=== PATIENT | male | born 1970 | race Caucasian/White ===

== ENCOUNTER 2025-04-09 11:35 | Observation (INO) ==
[2025-04-09 12:21] LABS: Hematocrit (blood only) 51.5 % (42.0-52.0); Hemoglobin 16.8 g/dl (14.0-18.0); Immature Granulocytes # (auto) 0.09 K/uL (0.01-0.20); Immature Granulocytes % (auto) 0.8 %; Mean Corpuscular Hemoglobin 30.5 pg (25.0-34.0); Mean Corpuscular Volume 93.6 fL (80.0-100.0); Platelet Count 265 K/uL (130-400); RDW Standard Deviation 45.3 fL (36.4-46.3); Red Blood Count 5.50 M/uL (4.70-6.10); White Blood Count 11.43 K/ul (4.8-10.8)
[2025-04-09 12:31] LABS: Alanine Aminotransferase 20.0 U/L (7-52); Albumin Globulin Ratio 1.6 (0.9-2); Alkaline Phosphatase 66.0 U/L (34-104); Anion Gap 8.0 (3-11); Bilirubin,Total 1.2 mg/dl (0.2-1.0); Blood Urea Nitrogen 27.0 mg/dl (6-23); Calcium 9.9 mg/dl (8.6-10.3); Carbon Dioxide 26.0 mmol/L (21-32); Chloride 103.0 mmol/L (98-107); Creatinine Clr Calc Pharmacy 95.2 ml/min; Globulin 2.8 gm/dl (2.5-4.0); Glucose 123.0 mg/dl (70-99(Fasting)); Potassium 4.3 mmol/L (3.5-5.1); Sodium 137.0 mmol/L (136-145); Total Protein 7.4 gm/dl (6.0-8.3)
--- NOTE | 2025-04-09 12:34 | XRay Report ---
SINGLE VIEW CHEST CLINICAL HISTORY: Chest pain FINDINGS: A PA chest radiograph is obtained. No prior studies are available for comparison at the mary e of dictation. A 2-lead cardiac pacemaker is in place and partially obscures the left mid chest. The heart is enlarged. The pulmonary vasculature is noncongested. The lungs and pleural spaces are clear . No pneumothorax is seen. The bony thorax is grossly intact. IMPRESSION: 1. Cardiomegaly and cardiac pacemaker without radiographic evidence of congestive failure. 2. The lungs are clear. ACT 112: Negative or not required by law. Electronically signed by: Denilson Workman M.D. 04/09/2025 12:33 PM
[2025-04-09 12:39] LABS: INR 1.1 (0.9-1.1); Partial Thromboplastin Time 30 Seconds (21-31); Prothrombin Time 11.6 Seconds (9.0-12.0)
--- NOTE | 2025-04-09 13:09 | Emergency Department Note ---
Impression & Plan V-tach, History of atrial flutter, AICD discharge, Non-ischemic cardiomyopathy ED Provider Note NAME: CHRIS WAHL AGE: 54 SEX: M : 1970 ARRIVES VIA: Walk-In INFORMANT: Patient, ED PROVIDER(S): Ariel Cruz MD CHIEF COMPLAINT: Concern for AICD discharge MEDICAL DECISION MAKING: Patient presents with the above. IV was established and blood work was obtained. Patient's AICD was interrogated. Blood work shows white count of 11 with a normal H&H and platelet count. The patient's kidney function unremarkable. Patient has normal magnesium phosphorus and calcium. Troponin negative. I did speak with Dr. Knight with cardiology after obtaining the patient's AICD interrogation report which showed that the patient did receive a shock for VT. He recommended observation monitoring. I did speak to the on- call hospitalist service Gunjan Vidales PA-C and the patient was admitted by Dr. Arango. Discussion w/ other healthcare providers: Tiffanie Vidales PA-C and Dr. Nba Knight cardiology Prior /Outside records reviewed: None Differential diagnosis: Cardiac ischemia, aortic dissection, pulmonary embolism, pneumothorax, pneumonia, pericarditis, myocarditis, GERD, cholecystitis, pancreatitis, musculoskeletal, as well as other pathologies were considered. Diagnostics, as interpreted by me: ECG: Sinus with a first-degree AV block, rate of 98 prolonged NC normal QRS, left axis deviation no ST elevation Q-wave noted in V2. Cardiac monitoring: An order was placed for continuous cardiac monitoring. The monitor shows a rate of 88 with sinus rhythm. Patient was placed on pulse oximetry Medical decision rules: None Imaging studies: I informally interpreted the patient's Chest x-ray does not show evidence of obvious pneumonia with formal report to follow. HPI: Patient presents due to concern for possible discharge of his AICD. Patient reports that he has in place for a known history of A-fib. The patient states that he has had several ablations in the past and does follow with cardiology back at [facility] in [place]. Patient does not believe that he has any prior history of heart failure. She did not have a prior history of cardiac arrest or heart disease. He also reports that he does have a history of atrial flutter. He is compliant with his medications. He does chew tobacco but denies any smoking drugs or alcohol. Patient denies any lightheadedness or dizziness. The patient states that around 11:00 he felt as though he got hit in the chest with a "sledgehammer." Patient denies any other symptoms but wanted to be evaluated for the possibility of the AICD discharging. PAST MEDICAL HISTORY: CHF, A-fib/flutter PAST SURGICAL HISTORY: AICD placement SOCIAL HISTORY: Smokeless tobacco. HOME MEDICATIONS: See Below ALLERGIES: See Below VITALS: See Below PHYSICAL EXAMINATION: GENERAL: NAD, non-toxic. EYE EXAM: Normal conjunctiva. PERRL, no anisocoria and EOM's grossly intact w/o pain. OROPHARYNX: Moist mucus membranes, grossly normal dentition. NECK: Trachea midline, no stridor. Supple, no nuchal rigidity, no adenopathy, non-tender. No signs of meningismus. FROM of the neck with good chin to chest and neck extension. LUNGS: Clear to auscultation. Normal chest wall mechanics. HEART: NSR, no MRG. ABDOMEN: Abdomen soft, non-tender, no masses, no rebound or guarding. BACK: No CVA TTP. SKIN: No rashes and no bruising. UPPER EXTREMITIES: Upper extremities are grossly normal. LOWER EXTREMITIES: Grossly normal, 1+ symmetric lower extremity edema without calf pain or erythema. NEURO EXAM: Awake and alert, follows commands, no obvious facial asymmetry, normal speech, moves all 4 extremities. Past Med/Surg History Problem List Non-ischemic cardiomyopathy History of atrial flutter V-tach AICD discharge Edema of right eyelid (Acute) Medical History Afib Hx of lower gastrointestinal bleeding hx of diverticular bleed T2DM (type 2 diabetes mellitus) HLD (hyperlipidemia) HTN (hypertension) Chronic HFrEF (heart failure with reduced ejection fraction) Cardiomyopathy Surgical History H/O cardiac radiofrequency ablation x 3 Presence of combination internal cardiac defibrillator (ICD) and pacemaker Family History Father Hypertension Coronary heart disease Social History Smoking Status: Former smoker Tobacco Type: Smokeless Tobacco (Dip or Chew) Second Hand Exposure: No; Do You Dip or Chew Tobacco: Yes; Tobacco Cessation Education Requested by Patient: No Hx Alcohol Use: Yes Alcohol type: beer Alcohol Intake Frequency: 2-3 x/Week Hx Substance Use: No Preferred Language: Swedish Communication Ability: Effective Supervisor Covering And Lining Required: No Beliefs That Will Affect Care: None Current Living Situation: Spouse Other Information That Helps Us Care for You: No Feels Safe at Home: Yes Safety Concerns: Feels Safe At This Time Assistive Devices: CPAP Allergies Allergies Allergy/AdvReac Type Severity Reaction Status Date / Time No Known Allergies Allergy Unverified 04/09/25 15:48 Home Meds Home Medications Medication Instructions Recorded Confirmed amiodarone 200 mg tablet 200 mg PO QAM 04/09/25 04/09/25 amlodipine 10 mg tablet 10 mg PO QAM 04/09/25 04/09/25 apixaban 5 mg tablet (Eliquis) 5 mg PO BID 04/09/25 04/09/25 aspirin 81 mg tablet,delayed 81 mg PO QAM 04/09/25 04/09/25 release atorvastatin 40 mg tablet 40 mg PO HS 04/09/25 04/09/25 empagliflozin 10 mg tablet 10 mg PO QAM 04/09/25 04/09/25 (Jardiance) furosemide 40 mg tablet 40 mg PO QAM 04/09/25 04/09/25 multivitamin 1 tab PO QAM 04/09/25 04/09/25 sacubitril 97 mg-valsartan 103 mg 1 tab PO BID 04/09/25 04/09/25 tablet (Entresto) sotalol 120 mg tablet 120 mg PO BID 04/09/25 04/09/25 spironolactone 25 mg tablet 25 mg PO QAM 04/09/25 04/09/25 tirzepatide 10 mg/0.5 mL 10 mg subcut WK 04/09/25 04/09/25 subcutaneous pen injector (Mounjaro) Results & Data (ED) Vital Signs Vital Signs - 24 hr 04/09/25 11:39 04/09/25 12:54 04/09/25 12:57 Temperature 36.2 C L Temperature Source Temporal Artery Scan Pulse Rate 100 H Pulse Rate [Apical] 90 Pulse Rhythm [Apical] Pulse Strength [Apical] Respiratory Rate 18 Respiratory Effort / Characteristics Non-Labored Spontaneous Non-Labored Spontaneous Respiratory Depth Normal Normal Respiratory Pattern Regular Regular Blood Pressure 146/82 H Blood Pressure [Right Arm] 146/95 H Blood Pressure Mean 103 Blood Pressure Mean [Right Arm] 112 Blood Pressure Position [Right Arm] Sitting Pulse Oximetry 96 97 Oxygen Delivery Method Room Air Room Air Room Air Sepsis Recent Fever Within 48 Hours No Sepsis New/Unexplained Change in Mental Status N/A Sepsis Action Taken by Nursing No Action Required 04/09/25 13:06 04/09/25 14:00 04/09/25 16:06 Temperature Temperature Source Pulse Rate 92 H Pulse Rate [Apical] 86 82 Pulse Rhythm [Apical] Regular Pulse Strength [Apical] Normal Respiratory Rate 17 Respiratory Effort / Characteristics Non-Labored Spontaneous Non-Labored Spontaneous Respiratory Depth Normal Normal Respiratory Pattern Regular Regular Blood Pressure Blood Pressure [Right Arm] 135/105 H 119/83 Blood Pressure Mean Blood Pressure Mean [Right Arm] 115 95 Blood Pressure Position [Right Arm] Sitting Pulse Oximetry 96 98 Oxygen Delivery Method Room Air Room Air Sepsis Recent Fever Within 48 Hours Sepsis New/Unexplained Change in Mental Status Sepsis Action Taken by Retirement Medications Current Medication List: was personally reviewed by me Laboratory Data Attestation: I reviewed the patient's lab results. 04/10/25 05:42 04/10/25 05:42 Lab Results 04/09/25 Range/Units 11:48 WBC 11.43 H (4.8-10.8) K/ul RBC 5.50 (4.70-6.10) M/uL Hgb 16.8 (14.0-18.0) g/dl Hct 51.5 (42.0-52.0) % MCV 93.6 (80.0-100.0) fL MCH 30.5 (25.0-34.0) pg MCHC 32.6 (32.0-36.0) g/dL RDW Std Deviation 45.3 (36.4-46.3) fL RDW Coeff of [place] 13.0 (11.5-14.5) % Plt Count 265 (130-400) K/uL MPV 10.3 (9.4-12.4) fL Immature Gran % (Auto) 0.8 % Neut % (Auto) 71.0 % Lymph % (Auto) 19.1 % [place] % (Auto) 7.9 % Eos % (Auto) 0.7 % Baso % (Auto) 0.5 % Neut # (Auto) 8.12 H (1.40-6.50) K/uL Lymph # (Auto) 2.18 (1.20-3.40) K/uL [place] # (Auto) 0.90 H (0.11-0.59) K/uL Eos # (Auto) 0.08 (0.00-0.50) K/uL Baso # (Auto) 0.06 (0.00-0.20) K/uL Immature Gran # (Auto) 0.09 (0.01-0.20) K/uL PT 11.6 (9.0-12.0) Seconds INR 1.1 (0.9-1.1) APTT 30 (21-31) Seconds PTT Ratio 1.1 Sodium 137 (136-145) mmol/L Potassium 4.3 (3.5-5.1) mmol/L Chloride 103 (98-107) mmol/L Carbon Dioxide 26 (21-32) mmol/L Anion Gap 8 (3-11) BUN 27 H (6-23) mg/dl Creatinine 1.30 (0.6-1.4) mg/dl Est Cr Clr Drug Dosing 95.2 ml/min eGFR 64.88 BUN/Creatinine Ratio 20.8 H (10-20) Glucose 123 H (70-99(Fasting)) mg/dl Calcium 9.9 (8.6-10.3) mg/dl Phosphorus 3.9 (2.5-4.9) mg/dl Magnesium 1.9 (1.7-2.4) mg/dl Total Bilirubin 1.2 H (0.2-1.0) mg/dl AST 21 (13-39) U/L ALT 20 (7-52) U/L Alkaline Phosphatase 66 (34-104) U/L Troponin I High Sens 6.0 (0-20) pg/ml Total Protein 7.4 (6.0-8.3) gm/dl Albumin 4.6 (3.4-5.0) gm/dl Globulin 2.8 (2.5-4.0) gm/dl Albumin/Globulin Ratio 1.6 (0.9-2) Administered Medications Amiodarone HCl (Amiodarone 200 Mg Tab) 200 mg PO QAM [facility] Stop: 05/10/25 08:59 Last Admin: 04/10/25 08:34 Dose: 200 mg Documented By: JANE Amlodipine Besylate (Amlodipine Besylate 5 Mg Tab) 10 mg PO QAM [facility] Stop: 05/10/25 08:59 Last Admin: 04/10/25 08:35 Dose: 10 mg Documented By: JANE Apixaban (Apixaban 5 Mg Tablet) 5 mg PO BID [facility] Stop: 05/09/25 20:59 Last Admin: 04/10/25 08:35 Dose: 5 mg Documented By: Admin: 04/09/25 20:22 Dose: 5 mg Documented By: JAMES Aspirin (Aspirin 81 Mg Ectab) 81 mg PO QAM [facility] Stop: 05/10/25 08:59 Last Admin: 04/10/25 08:35 Dose: 81 mg Documented By: JANE Atorvastatin Calcium (Atorvastatin 40 Mg Tab) 40 mg PO HS [facility] Stop: 05/09/25 20:59 Last Admin: 04/09/25 20:53 Dose: 40 mg Documented By: JAMES Empagliflozin (Empagliflozin 10 Mg Tab) 10 mg [facility] Stop: 05/10/25 08:59 Last Admin: 04/10/25 08:35 Dose: 10 mg Documented By: JANE Furosemide (Furosemide 40 Mg Tab) 40 mg PO QAM [facility] Stop: 05/10/25 08:59 Last Admin: 04/10/25 08:35 Dose: 40 mg Documented By: JANE Insulin Aspart (Insulin Aspart Per Unit Charge) 0 units SC ACHS [facility] Stop: 05/09/25 20:59 Last Admin: 04/10/25 08:04 Dose: Not Given Documented By: Admin: 04/09/25 20:23 Dose: Not Given Documented By: JAMES Multivitamins (Multivitamin Tab) 1 tab PO QAM [facility] Stop: 05/10/25 08:59 Last Admin: 04/10/25 08:35 Dose: 1 tab Documented By: JANE Sacubitril/Valsartan (Valsartan/Sacubitril 103/97mg Tab) 1 tab PO BID [facility] Stop: 05/09/25 20:59 Last Admin: 04/10/25 08:35 Dose: 1 tab Documented By: Admin: 04/09/25 20:22 Dose: 1 tab Documented By: JAMES Sotalol HCl (Sotalol Hcl 80 Mg Tab) 120 mg PO BID [facility] Stop: 05/09/25 20:59 Last Admin: 04/10/25 08:34 Dose: 120 mg Documented By: Admin: 04/09/25 20:53 Dose: 120 mg Documented By: JAMES Spironolactone (Spironolactone 25 Mg Tab) 25 mg PO QAM [facility] Stop: 05/10/25 08:59 Last Admin: 04/10/25 08:35 Dose: 25 mg Documented By: JANE Discontinued Medications Magnesium Sulfate/Dextrose (Magnesium Sulfate / D5w) 1 gm in 100 mls @ 50 mls/hr IV ONE ONE Stop: 04/09/25 18:18 Last Infusion: 04/09/25 18:59 Dose: Infused Documented By: [facility] Admin: 04/09/25 17:02 Dose: 50 mls/hr Documented By: JAI Imaging Data Radiologist's Impression: Chest X-Ray 04/09/25 11:43 SINGLE VIEW CHEST CLINICAL HISTORY: Chest pain FINDINGS: A PA chest radiograph is obtained. No prior studies are available for comparison at the time of dictation. A 2-lead cardiac pacemaker is in place and partially obscures the left mid chest. The heart is enlarged. The pulmonary vasculature is noncongested. The lungs and pleural spaces are clear. No pneumothorax is seen. The bony thorax is grossly intact. IMPRESSION: 1. Cardiomegaly and cardiac pacemaker without radiographic evidence of congestive failure. 2. The lungs are clear. ACT 112: Negative or not required by law. Electronically signed by: Denilson Workman M.D. 04/09/2025 12:33 PM Discharge Plan Visit Data Chief Complaint: Cardiac Assessment Stated Complaint: heart ED Provider: Ariel Cruz Discharge Problem: V-tach, History of atrial flutter, AICD discharge, Non-ischemic cardiomyopathy Patient Disposition: Admitted As Inpatient Condition: Good Discharge Instructions Interventions: ED Discharge Assessment Last Done: 04/09/25 19:03
[2025-04-09 13:41] LABS: Magnesium 1.9 mg/dl (1.7-2.4)
--- NOTE | 2025-04-09 16:40 | History & Physical Report ---
Date of Service April 09, 2025 Assessment & Plan (1) AICD discharge: (2) V-tach: (3) Chronic HFrEF (heart failure with reduced ejection fraction): (4) Cardiomyopathy: (5) T2DM (type 2 diabetes mellitus): (6) HTN (hypertension): (7) HLD (hyperlipidemia): (8) Afib: Plan This is a 54-year-old male who has significant past medical history of nonischemic hypertensive cardiomyopathy with severely reduced LVEF of 20 to 25%, chronic HFrEF, hx of afib s/p ablation x 3, hx of atrial futter, history of nonsustained V. tach, presence of dual-chamber pacemaker/AICD, history of type I second-degree AV block with occasional 2-1 AV block, HTN, HLD, T2DM who presents to ED after sustaining a discharge from his AICD. #AICD Discharge #Dilated nonischemic cardiomyopathy #Chronic HFrEF #Hx of atrial fibrillation s/p ablation x 3 #hx of atrial flutter admit to PCU [place] pacer interrogation revealed 45 sec run of vtach with AICD discharge, pt had additional episode of NSVT ED provider discussed with cardiology Dr. Knight who recommends observation on tele continue amiodarone, sotalol, eliquis, lasix, aldactone, entresto, jardiance potassium adequate, will give magnesium 1g to get to 2.0 or above troponin is undetectable obtain echocardiogram Pt follows with cardiology Dr. Jose Valentin of [facility] in [place] and Dr. Ariel Gayle of [facility], [facility] of [place] #HLD: chronic, stable, continue statin #T2DM: unknown a1c on mounjaro and jardiance at outpt, place on novolog SS and diabetic diet, a1c in a.m. #HTN: chronic, stable, continue amlodipine, lasix, entresto, aldactone DVT ppx: Eliquis FULL CODE PCP: Ariel Gayle is high voltage electrician Dispo: admit to PCU Pt was seen and examined in collaboration with Dr. Arango, please see addendum I spent a total of 65 minutes coordinating, documenting and providing care for this patient excluding time spent in the performance of separately billed services or time spent by another provider/QHP. History of Present Illness Chief Complaint: AICD discharge prior to arrival. Primary Care Provider: RICOC GAYLE This is a 54-year-old male who has significant past medical history of nonischemic hypertensive cardiomyopathy with severely reduced LVEF of 20 to 25%, chronic HFrEF, hx of afib s/p ablation x 3, hx of atrial futter, history of nonsustained V. tach, presence of dual-chamber pacemaker/AICD, history of type I second-degree AV block with occasional 2-1 AV block, HTN, HLD, T2DM who presents to ED after sustaining a discharge from his AICD. History is obtained from patient, son at bedside, ED provider. 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 Patient is not from the area and his establish care is in [facility]. He is currently in the area for work. 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 He was off of work today and has been feeling well. He denies any recent illness, fever, chills, sweats, lightheadedness, dizziness, chest pain, shortness of breath, nausea, vomiting, abdominal pain, changes bowel or urinary habits. He has not missed any dosages of his medications. He has been compliant. He states at approximately 11 AM today he had an acute onset of, "being hit in the chest with a sledgehammer or like I got electrocuted." He did not pass out or have any prodromal symptoms. He has never had this happen before. He presented to ED with his son. He states he saw his high voltage electrician 1 month ago and had a pacemaker interrogation. He has known hx of afib and had ablation x 3. 2-3 weeks ago he was to undergo a possible ablation for atrial flutter but ekg showed regular rhythm when he presented for procedure. He states his EP Solar Installation Crew Supervisor is Dr. Ariel Gayle with [facility]. Hx primary high voltage electrician is Dr. Jose Valentin. Both are out of [place], [place]. He reports his EF at diagnosis was 22% initially. He reports recently having an echo but is unsure of the results. In ED pt underwent an [employer] Pac[employer]/AICD interrogation which revealed 2 runs of VTACH ,1 sustained at 45 sec which resulted in aicd discharge. Allergies Allergy/AdvReac Type Severity Reaction Status Date / Time No Known Allergies Allergy Unverified 04/09/25 15:48 Home Medications Medication Instructions Recorded Confirmed Type amiodarone 200 mg tablet 200 mg PO QAM 04/09/25 04/09/25 History amlodipine 10 mg tablet 10 mg PO QAM 04/09/25 04/09/25 History apixaban 5 mg tablet (Eliquis) 5 mg PO BID 04/09/25 04/09/25 History aspirin 81 mg tablet,delayed 81 mg PO QAM 04/09/25 04/09/25 History release atorvastatin 40 mg tablet 40 mg PO HS 04/09/25 04/09/25 History empagliflozin 10 mg tablet 10 mg PO QAM 04/09/25 04/09/25 History (Jardiance) furosemide 40 mg tablet 40 mg PO QAM 04/09/25 04/09/25 History multivitamin 1 tab PO QAM 04/09/25 04/09/25 History sacubitril 97 mg-valsartan 103 mg 1 tab PO BID 04/09/25 04/09/25 History tablet (Entresto) sotalol 120 mg tablet 120 mg PO BID 04/09/25 04/09/25 History spironolactone 25 mg tablet 25 mg PO QAM 04/09/25 04/09/25 History tirzepatide 10 mg/0.5 mL 10 mg subcut WK 04/09/25 04/09/25 History subcutaneous pen injector (Mounjaro) Past Med/Surg History Problem List (Updated 04/09/25 @ 17:08 by Gunjan Vidales PA-C) V-tach AICD discharge Edema of right eyelid (Acute) Medical History (Updated 04/09/25 @ 17:08 by Gunjan Vidales PA-C) Afib Hx of lower gastrointestinal bleeding hx of diverticular bleed T2DM (type 2 diabetes mellitus) HLD (hyperlipidemia) HTN (hypertension) Chronic HFrEF (heart failure with reduced ejection fraction) Cardiomyopathy Surgical History H/O cardiac radiofrequency ablation x 3 Presence of combination internal cardiac defibrillator (ICD) and pacemaker Family History Father Hypertension Coronary heart disease Social History Smoking Status: Former smoker Tobacco Type: Smokeless Tobacco (Dip or Chew) Hx Alcohol Use: Yes Alcohol type: beer Alcohol Intake Frequency: 2-3 x/Week Hx Substance Use: No Preferred Language: Irish Feels Safe at Home: Yes Review of Systems Review of Systems: All systems reviewed & are unremarkable except as noted in HPI & below Physical Exam Physical Exam: Constitutional: WD/WN, vitals as above, NAD, sitting up in bed, pleasant, conversing easily Head: Normocephalic, Atraumatic Eyes: conjunctivae with mild injection, anicteric sclerae ENMT: external ear and nose normal, oropharynx normal Neck: trachea midline, no thyromegaly normal visual inspection Respiratory: normal respiratory effort, lungs clear to auscultation, no wheeze, rales, rhonchi. Cardiovascular: RRR, no murmur, no edema Vessels: no JVD or carotid bruit Chest: LACW scar from AICD/pacer Abdomen: normal bowel sounds, soft, nontender, no hepatosplenomegaly Musculoskeletal: no cyanosis or clubbing, AROM x 4 Skin: no rashes, warm and dry normal turgor Neurologic: no face palsy, no dysarthria CN's II-XI intact bilaterally and moves all extremities Psychiatric: A+Ox3, euthymic affect Results & Data Results & Data Vital Signs (Past 12 Hours) Vital Signs Temp Pulse Pulse Resp BP BP Pulse Ox 04/09/25 16:06 82 17 119/83 98 04/09/25 14:00 86 135/105 H 96 04/09/25 13:06 92 H 04/09/25 12:57 97 04/09/25 12:54 90 146/95 H 04/09/25 11:39 36.2 C L 100 H 18 146/82 H 96 O2 Del Method 04/09/25 16:06 Room Air 04/09/25 14:00 Room Air 04/09/25 13:06 04/09/25 12:57 Room Air 04/09/25 12:54 Room Air 04/09/25 11:39 Room Air Laboratory Results I have independently reviewed and interpreted patient's admitting labs including CBC, CMP, PTT, PT/INR, mag and troponin. Diagnostic Findings Chest X-Ray 04/09/25 11:43 SINGLE VIEW CHEST CLINICAL HISTORY: Chest pain FINDINGS: A PA chest radiograph is obtained. No prior studies are available for comparison at the time of dictation. A 2-lead cardiac pacemaker is in place and partially obscures the left mid chest. The heart is enlarged. The pulmonary vasculature is noncongested. The lungs and pleural spaces are clear. No pneumothorax is seen. The bony thorax is grossly intact. IMPRESSION: 1. Cardiomegaly and cardiac pacemaker without radiographic evidence of congestive failure. 2. The lungs are clear. ACT 112: Negative or not required by law. Electronically signed by: Denilson Workman M.D. 04/09/2025 12:33 PM Medications Administered Medication List Magnesium Sulfate/Dextrose (Magnesium Sulfate / D5w) 1 gm in 100 mls @ 50 mls/hr IV ONE ONE Stop: 04/09/25 18:18 Last Admin: 04/09/25 17:02 Dose: 50 mls/hr Documented By: MNE ECG Additional Comments: I have independently reviewed and interpreted patient's admitting EKG which reve aled: NSR, first degree AVB COVID-19 Results Results COVID-19 Adm Lab Results: RBC 5.50 M/uL (4.70-6.10) 04/09/25 WBC 11.43 K/ul (4.8-10.8) H 04/09/25 Hgb 16.8 g/dl (14.0-18.0) 04/09/25 Hct 51.5 % (42.0-52.0) 04/09/25 Plt Count 265 K/uL (130-400) 04/09/25 Neutrophils (%) (Auto) 71.0 % 04/09/25 Lymphocytes (%) (Auto) 19.1 % 04/09/25 Monocytes # (Auto) 0.90 K/uL (0.11-0.59) H 04/09/25 Eosinophils # (Auto) 0.08 K/uL (0.00-0.50) 04/09/25 Immature Granulocyte % (Auto) 0.8 % 04/09/25 Neutrophils # (Auto) 8.12 K/uL (1.40-6.50) H 04/09/25 Lymphocytes # (Auto) 2.18 K/uL (1.20-3.40) 04/09/25 Monocytes # (Auto) 0.90 K/uL (0.11-0.59) H 04/09/25 Eosinophils # (Auto) 0.08 K/uL (0.00-0.50) 04/09/25 Basophils # (Auto) 0.06 K/uL (0.00-0.20) 04/09/25 Immature Granulocyte # (Auto) 0.09 K/uL (0.01-0.20) 5 Na 137 mmol/L (136-145) 04/09/25 K 4.3 mmol/L (3.5-5.1) 04/09/25 Cl 103 mmol/L (98-107) 04/09/25 CO2 26 mmol/L (21-32) 04/09/25 Anion Gap 8 (3-11) 04/09/25 BUN 27 mg/dl (6-23) H 04/09/25 Creatinine 1.30 mg/dl (0.6-1.4) 04/09/25 BUN/Creatinine Ratio 20.8 (10-20) H 04/09/25 Glucose Level 123 mg/dl (70-99(Fasting)) H 04/09/25 Ca 9.9 mg/dl (8.6-10.3) 04/09/25 Phosphorus Level 3.9 mg/dl (2.5-4.9) 04/09/25 Total Bilirubin 1.2 mg/dl (0.2-1.0) H 04/09/25 AST/SGOT 21 U/L (13-39) 04/09/25 ALT/SGPT 20 U/L (7-52) 04/09/25 Alkaline Phosphatase 66 U/L (34-104) 04/09/25 Total Protein 7.4 gm/dl (6.0-8.3) 04/09/25 Albumin 4.6 gm/dl (3.4-5.0) 04/09/25 Globulin 2.8 gm/dl (2.5-4.0) 04/09/25 Albumin/Globulin Ratio 1.6 (0.9-2) 04/09/25 PTT 30 Seconds (21-31) 04/09/25 INR 1.1 (0.9-1.1) 04/09/25 Chest X-Ray 04/09/25 Code Status & VTE Plan Code Status FULL CODE VTE Prophylaxis Plan VTE Prophylaxis will be ordered: Yes
--- NOTE | 2025-04-09 16:48 | Communication Note ---
Date of Service: April 09, 2025 Attending Addendum: Case reviewed with the advanced practitioner. I have personally performed a history and physical examination on the patient. I have reviewed the advanced practitioner's documentation on the date of service referenced in note, and I agree with, and take responsibility for the plan of care. please refer to her notes for full details patient seen and examined, records reviewed by myself as well on exam, patient seen resting in bed, sitting up, comfortable states he feels fine overall denies symptoms before feeling AICD fired no chest pain, shortness of breath, dizziness, palpitations no fever/chills, cough, abdominal pain, nausea, problems with urination or BM taking his medications regularly no other symptoms VS noted and reviewed oriented x3, not in distress, speaks in sentences with no effort nor accessory muscle use normal rate, regular rhythm, no murmurs clear breath sounds bilaterally non distended, soft, nontender no bipedal edema, erythema, warmth no neuro deficits all labs, imaging noted and reviewed ASSESSMENT AND PLAN> VENTRICULAR TACHYCARDIA, AICD FIRING DILATED CARDIOMYOPATHY, EF 20-25% S/P AICD HISTORY OF NON SUSTAINED V TACH, SECONDARY DEGREE AV BLOCK HISTORY OF ATRIAL CORONARY ARTERY DISEASE, S/P ME pacemaker interrogation revealing 2 episodes of V tach :12 sec and 45 sec, pro mpting delivery of shock x 1 electrolytes normal, IV Mg given to maintain Mg > 2.0 echo ordered continue usual Amiodarone, Sotalol, Entresto, Jardiance, Eliquis, ASA Shredded Filler Hopper Feeder consulted other chronic medical problems: DM 2 HYPERTENSION MORBID OBESITY other diagnoses and plan of care as per advanced practitioner's notes I spent a total of 40 minutes coordinating, documenting, and providing care for this patient, excluding time spent in the performance of separately billed services or time spent by another provider/QHP. Alberto Arango MD
[2025-04-09] MEDS: MAGNESIUM SULFATE / D5W 1 GM/100 ML BAG IV ONE (17:02)
[2025-04-09] MEDS ORDERED: DEXTROSE 50% 50 ML SYRINGE IV PRN (19:28)
[2025-04-09] MEDS ORDERED: POLYETHYLENE (MIRALAX) 17 GM PACK PO PRN (19:28)
[2025-04-09] MEDS ORDERED: GLUCOSE 40% GEL 15 GM TUBE PO PRN (19:28)
[2025-04-09] MEDS ORDERED: GLUCOSE 10 TAB/TUBE PO PRN (19:28)
[2025-04-09] MEDS ORDERED: ONDANSETRON INJ 2 MG/ML 2 ML VIAL IV PRN (19:28)
[2025-04-09] MEDS ORDERED: GLUCAGON FOR INJ 1 MG VIAL SQ PRN (19:28)
[2025-04-09] MEDS ORDERED: CARBOHYDRATES FOR HYPOGLYCEMIA PO PRN (19:28)
[2025-04-09] MEDS ORDERED: ACETAMINOPHEN 325 MG TAB PO PRN (19:28)
[2025-04-09] MEDS: ATORVASTATIN 40 MG TAB PO SCH (20:21)
[2025-04-09] MEDS: VALSARTAN/SACUBITRIL 103/97MG TAB PO SCH (20:22)
[2025-04-09] MEDS: APIXABAN 5 MG TABLET PO SCH (20:22)
[2025-04-09] MEDS: INSULIN ASPART PER UNIT CHARGE SC SCH (20:23)
[2025-04-09] MEDS: SOTALOL HCL 80 MG TAB PO SCH (20:53)
--- NOTE | 2025-04-09 22:33 | Electrocardiogram Report ---
Test Reason : Blood Pressure : */* mmHG Vent. Rate : 98 BPM Atrial Rate : 98 BPM P-R Int : 210 ms QRS Dur : 104 ms QT Int : 366 ms P-R-T Axes : 66 -46 61 degrees QTcB Int : 467 ms Sinus rhythm with 1st degree A-V block Left anterior fascicular block Septal infarct , age undetermined Abnormal ECG No previous ECGs available Confirmed by Juan Rubalcava ([id number]) on 04/09/2025 10:33:38 PM Referred By: REFERRED SELF Confirmed By: Juan Rubalcava
[2025-04-10 07:24] LABS: Hematocrit (blood only) 47.5 % (42.0-52.0); Hemoglobin 15.3 g/dl (14.0-18.0); Immature Granulocytes # (auto) 0.05 K/uL (0.01-0.20); Immature Granulocytes % (auto) 0.7 %; Mean Corpuscular Hemoglobin 30.5 pg (25.0-34.0); Mean Corpuscular Volume 94.8 fL (80.0-100.0); Platelet Count 197 K/uL (130-400); RDW Standard Deviation 46.2 fL (36.4-46.3); Red Blood Count 5.01 M/uL (4.70-6.10); White Blood Count 7.60 K/ul (4.8-10.8)
[2025-04-10] MEDS: AMIODARONE 200 MG TAB PO SCH (08:34)
[2025-04-10] MEDS: ASPIRIN 81 MG ECTAB PO SCH (08:35)
[2025-04-10] MEDS: FUROSEMIDE 40 MG TAB PO SCH (08:35)
[2025-04-10] MEDS: EMPAGLIFLOZIN 10 MG TAB PO SCH (08:35)
[2025-04-10] MEDS: SPIRONOLACTONE 25 MG TAB PO SCH (08:35)
[2025-04-10] MEDS: MULTIVITAMIN TAB PO SCH (08:35)
[2025-04-10 08:44] LABS: Alanine Aminotransferase 19.0 U/L (7-52); Albumin Globulin Ratio 1.6 (0.9-2); Alkaline Phosphatase 60.0 U/L (34-104); Anion Gap 8.0 (3-11); Bilirubin,Total 1.2 mg/dl (0.2-1.0); Blood Urea Nitrogen 26.0 mg/dl (6-23); Calcium 9.3 mg/dl (8.6-10.3); Carbon Dioxide 28.0 mmol/L (21-32); Chloride 102.0 mmol/L (98-107); Cholesterol 105.0 mg/dl (0-200); Creatinine Clr Calc Pharmacy 115.1 ml/min; Globulin 2.7 gm/dl (2.5-4.0); Glucose 91.0 mg/dl (70-99(Fasting)); HDL Cholesterol 35.0 mg/dl; Magnesium 2.2 mg/dl (1.7-2.4); Potassium 4.0 mmol/L (3.5-5.1); Sodium 138.0 mmol/L (136-145); Total Protein 6.9 gm/dl (6.0-8.3); Triglycerides 113.0 mg/dl (0-150)
[2025-04-10 08:50] LABS: Hemoglobin A1C 5.7 % (4.5-5.6)
[2025-04-10 09:23] VITALS: PULSE 78; RESP 13; TEMP 98.4; O2SAT 97
--- NOTE | 2025-04-10 09:59 | Cardiology Consultation ---
Date of Consultation April 10, 2025 Assessment & Plan (1) AICD discharge: (2) History of atrial flutter: (3) Non-ischemic cardiomyopathy: Mr Steward has a complex past cardiac history. 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 His past history was obtained via interview with the patient as records are not available. He describes being diagnosed with a nonischemic cardiomyopathy in around 2019 with severe left ventricular systolic dysfunction, LVEF in the range of 20-25% at that time. He underwent implantation of a dual chamber [employer] Greg ([employer] ) AICD in Jan, 2020 for primary prevention of sudden cardiac in the setting of a nonischemic cardiomyopathy and severe left ventricular systolic dysfunction. In the meantime he states his ejection fraction has improved, 50% per her recollection of his most recent echocardiogram with having had a study performed recently and has an upcoming follow-up visit with his primary General Internal Audit Senior Manager in 2 days to go over the echocardiogram results. He describes having a history of three total ablations, the most recent of which took place in December, 14 describes as atrial flutter. Per review of his data from his device, that would correlate with findings that he was in atrial fibrillation/atrial flutter 100% of the time from April 2024 up until . Since 03/06/2025 he has apparently been in atrial fibrillation/atrial flutter 7.8% the time. The patient was feeling well up until he felt his AICD discharge yesterday. There was apparently some difficulty performing a remote download yesterday and the information available this morning is incomplete. A repeat download to obtain the necessary electrograms is in process. Preliminarily, the data suggest that the patient has been predominantly in sinus rhythm since 03/06/2025, atrial paced 62% of the time, ventricular paced 3.7% the time with atrial fibrillation/flutter burden of 7.8%. The device is set to treat ventricular tachycardia if the ventricular rate exceeds 171 bpm. Would appear that the patient received 3 rounds of antitachycardia pacing and then an AICD discharge for rapid atrial arrhythmia (elevated atrial and ventricular rates), not ventricular tachycardia. The patient confirms for me that he has prescribed both amiodarone and sotalol. He states that the time of his recent ablation in December carvedilol was discontinued and he was transitioned to sotalol. QT interval on EKG performed on presentation yesterday was within normal limits. Repeat tracing will be obtained. Await repeat device interrogation to obtain additional data and repeat EKG. Echocardiogram findings at this institution today reveal mild left ventricular systolic dysfunction, LVEF in the range of 45 to 50%, which does not sound to be significantly changed compared to his recent baseline. Continue current medications including amiodarone, amlodipine, Eliquis, aspirin, atorvastatin, Jardiance, furosemide, Entresto, spironolactone. As you know, I confirmed with the patient that he is taking both sotalol and amiodarone and this will be continued. Patient already has a cardiology follow-up with his primary general balance wheel motion inspector in 2 days. As long as the follow-up EKG and repeat interrogation reveal stable findings, we will plan on likely discharging the patient later today to follow- up in [place]. Keke Gonzalez DO Patient's EP provider: Dr Rene Patel [facility] [phone] Primary balance wheel motion inspector: Jose Valentin [facility] [phone] History of Present Illness Attending Physician: Fer Morrison DO History of Present Illness Tiago Steward is a 54 year old male seen in cardiology consultation per the request of Gunjan Vidales PA-C of the [facility] Hospitalist service for the evaluation of an AICD discharge. The patient lives in the [place] area and received his cardiology care within the [facility] followed by Dr Rene Patel of electrophysiology there. He has an apparent history of a nonischemic cardiomyopathy with noted severe left ventricular systolic dysfunction, LVEF in the range of 20-25% at the time of initial diagnosis over 5 years ago having presented at that time with volume overload. He underwent implantation of a dual-chamber [employer] Greg ([employer]) AICD in [place] on 02/08/2025 per information found on his device identification card. He describes being diagnosed with atrial fibrillation for which he underwent two ablation procedures and then subsequently underwent a third ablation procedure for what he describes as atrial flutter several years ago. He has been placed on medications including therapy with both amiodarone and sotalol and states that things have been going well. He believes that at the time of his most recent echocardiogram a year ago his ejection fraction had improved to about 50%. He actually just had a repeat echocardiogram performed a few weeks ago in [place] and has an appointment with Dr Patel in [place] in two days on , 04/12/25 to go over the result of that echocardiogram. The patient states that he has been feeling well from a cardiac perspective without any concerns with regards to new or worsening shortness of breath denies any recent palpitations, lightheadedness or dizziness. He is in the area working on a [employer] project at [employer] and is staying at the [employer] [facility]. Yesterday at approximately 11 AM he was in his normal state of health and he bent down and then felt an electric shock. It took him a few moments to realize that his AICD had gone off as he has not had this happen to him before. Allergies Allergy/AdvReac Type Severity Reaction Status Date / Time No Known Allergies Allergy Unverified 04/09/25 15:48 Home Medications Medication Instructions Recorded Confirmed Type amiodarone 200 mg tablet 200 mg PO QAM 04/09/25 04/09/25 History amlodipine 10 mg tablet 10 mg PO QAM 04/09/25 04/09/25 History apixaban 5 mg tablet (Eliquis) 5 mg PO BID 04/09/25 04/09/25 History aspirin 81 mg tablet,delayed 81 mg PO QAM 04/09/25 04/09/25 History release atorvastatin 40 mg tablet 40 mg PO HS 04/09/25 04/09/25 History empagliflozin 10 mg tablet 10 mg PO QAM 04/09/25 04/09/25 History (Jardiance) furosemide 40 mg tablet 40 mg PO QAM 04/09/25 04/09/25 History multivitamin 1 tab PO QAM 04/09/25 04/09/25 History sacubitril 97 mg-valsartan 103 mg 1 tab PO BID 04/09/25 04/09/25 History tablet (Entresto) sotalol 120 mg tablet 120 mg PO BID 04/09/25 04/09/25 History spironolactone 25 mg tablet 25 mg PO QAM 04/09/25 04/09/25 History tirzepatide 10 mg/0.5 mL 10 mg subcut WK 04/09/25 04/09/25 History subcutaneous pen injector (Mounjaro) Patient History Medical History Afib Hx of lower gastrointestinal bleeding hx of diverticular bleed T2DM (type 2 diabetes mellitus) HLD (hyperlipidemia) HTN (hypertension) Chronic HFrEF (heart failure with reduced ejection fraction) Cardiomyopathy Surgical History H/O cardiac radiofrequency ablation x 3 Presence of combination internal cardiac defibrillator (ICD) and pacemaker Family History Father Hypertension Coronary heart disease Social History Smoking Status: Former smoker Tobacco Type: Smokeless Tobacco (Dip or Chew) Second Hand Exposure: No; Do You Dip or Chew Tobacco: Yes; Tobacco Cessation Education Requested by Patient: No Hx Alcohol Use: Yes Alcohol type: beer Alcohol Intake Frequency: 2-3 x/Week Hx Substance Use: No Preferred Language: Canadian Communication Ability: Effective [place] Required: No Beliefs That Will Affect Care: None Current Living Situation: Spouse Other Information That Helps Us Care for You: No Feels Safe at Home: Yes Safety Concerns: Feels Safe At This Time Assistive Devices: CPAP Review of Systems Review of Systems: All systems reviewed & are unremarkable except as noted in HPI & below Physical Exam Physical Exam: General: no acute distress and stated age Eyes: conjunctiva are pink and non-injected, sclera clear Neck: normal jugular venous pulse, no hepatojugular reflux Chest: normal shape and normal respiratory effort Lungs: clear to auscultation and percussion Cardiac Exam: - regular heart sounds, no murmurs, rubs, or gallops, no jugular venous distention Abdomen: abdomen soft, non-tender, no abnormal masses and no hepatosplenomegaly Musculoskeletal: no gait disturbance, no weakness Extremities: no edema and no cyanosis Neuro:awake, conversant, follows commands, no focal motor deficits Psych: appropriate affect and insight. Results & Data Vital Signs (Past 12 Hours) Vital Signs Temp Pulse Pulse Resp BP Pulse Ox O2 Del Method 04/10/25 08:27 36.9 C 78 13 115/79 97 Room Air 04/10/25 07:03 75 04/10/25 03:37 36.5 C 74 20 119/80 93 Room Air 04/09/25 23:20 36.4 C L 76 20 110/64 95 Room Air Laboratory Results Cardiac Enzymes 04/09/25 04/10/25 Range/Units 11:48 05:42 AST 21 19 (13-39) U/L Troponin I High Sens 6.0 (0-20) pg/ml Coagulation 04/09/25 Range/Units 11:48 PT 11.6 (9.0-12.0) Seconds APTT 30 (21-31) Seconds Lipids 04/10/25 Range/Units 05:42 Triglycerides 113 (0-150) mg/dl Cholesterol 105 (0-200) mg/dl HDL Cholesterol 35 mg/dl Cholesterol/HDL Ratio 3.0 (0-5) LDL 47 mg/dl CBC 04/09/25 04/10/25 Range/Units 11:48 05:42 WBC 11.43 H 7.60 (4.8-10.8) K/ul RBC 5.50 5.01 (4.70-6.10) M/uL Hgb 16.8 15.3 (14.0-18.0) g/dl Hct 51.5 47.5 (42.0-52.0) % Plt Count 265 197 (130-400) K/uL Neut # (Auto) 8.12 H 5.19 (1.40-6.50) K/uL Lymph # (Auto) 2.18 1.51 (1.20-3.40) K/uL Deuel # (Auto) 0.90 H 0.67 H (0.11-0.59) K/uL Eos # (Auto) 0.08 0.12 (0.00-0.50) K/uL Baso # (Auto) 0.06 0.06 (0.00-0.20) K/uL Comprehensive Metabolic Panel 04/09/25 04/10/25 Range/Units 11:48 05:42 Sodium 137 138 (136-145) mmol/L Potassium 4.3 4.0 (3.5-5.1) mmol/L Chloride 103 102 (98-107) mmol/L Carbon Dioxide 26 28 (21-32) mmol/L BUN 27 H 26 H (6-23) mg/dl Creatinine 1.30 1.07 (0.6-1.4) mg/dl Glucose 123 H 91 (70-99(Fasting)) mg/dl Calcium 9.9 9.3 (8.6-10.3) mg/dl AST 21 19 (13-39) U/L ALT 20 19 (7-52) U/L Alkaline Phosphatase 66 60 (34-104) U/L Total Protein 7.4 6.9 (6.0-8.3) gm/dl Albumin 4.6 4.2 (3.4-5.0) gm/dl Intake and Output 04/09/25 04/10/25 04/10/25 22:59 06:59 14:59 Intake Total 100 / 600 500 / 600 Balance 100 / 600 500 / 600 Intake: IV 100 / 100 Magnesium Sulfate / D5w 1 gm In 100 / 100 100 ml @ 50 mls/hr IV ONE ONE Rx#:[id number] Oral 500 / 500 Other: Weight 152.18 kg 151.4 kg Weight Measurement Method Built in [facility] in [facility] Diagnostic Findings EKG performed 04/09/2025 at 11:46 AM, reviewed and interpreted independently: Sinus rhythm at 98 bpm with first-degree AV block, age-indeterminate septal infarct pattern noted in lead V2. The corrected QT interval is normal at 467 ms. No previous tracings available for comparison. Summary of echocardiogram performed 04/10/2025 and interpret independently: There is mild global left ventricular hypokinesis The left ventricular ejection fraction is mildly reduced in the range of 45-50%. An intracardiac device lead is visualized in the right ventricle The right ventricular chamber size and systolic function is normal. The left atrium is mildly dilated Mild mitral crepitation is present No previous tracings available for comparison. PG Care Time/CCT Total # of Minutes Spent Total Time Spent with Patient: 120 minutes were Spent in direct patient care including obtaining data, review, examining patient, performing counseling, and completing this document. [place] [address] IN/OBS CONSULT LVL 5,80M Patient Type New History Comprehensive Exam Comprehensive Medical Decision Making High Complexity Diagnoses AICD discharge Z45.02 History of atrial flutter Z86.79 Non-ischemic cardiomyopathy I42.8
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
[2025-04-10 12:31] VITALS: BP 117/79
--- NOTE | 2025-04-13 05:03 | Electrocardiogram Report ---
Test Reason : Blood Pressure : */* mmHG Vent. Rate : 78 BPM Atrial Rate : 78 BPM P-R Int : 208 ms QRS Dur : 110 ms QT Int : 440 ms P-R-T Axes : 28 -29 19 degrees QTcB Int : 501 ms Normal sinus rhythm Septal infarct (cited on or before 09-Apr-2025) Prolonged QT Abnormal ECG When compared with ECG of 09-Apr-2025 11:46, No significant change was found Confirmed by Juan Rubalcava ([id number]) on 04/13/2025 5:02:39 AM Referred By: REFERRED SELF Confirmed By: Juan Rubalcava
== END 2025-04-10 13:18 | disposition home or self-care (01) ==
LOC: ED 11:35 → EDINP 11:35 → SUATTDRO 16:17 → 2S 19:03